=== PATIENT | male | born 1975 | race Caucasian/White ===

== ENCOUNTER → 2018-02-02 14:16 | Outpatient (CLI) | payer BC, SELFPAY ==
--- NOTE | 2018-02-02 14:22 | VDLE_ITS ---
Reason For Study: PAIN RIGHT LEFT CFV is compressible, spontaneous, phasic, CFV is compressible, spontaneous, phasic, competent and demonstrates normal competent, and demonstrates normal augmentation. augmentation. FV is compressible, spontaneous, phasic, FV is compressible, spontaneous, phasic, competent and demonstrates normal competent and demonstrates normal augmentation. augmentation. POP V is compressible, spontaneous, phasic, POP V is compressible, spontaneous, phasic, competent and demonstrates normal competent and demonstrates normal augmentation. augmentation. T/P Trunk is compressible. T/P Trunk is compressible. PTV is compressible. PTV is compressible. RT PerV is compressible. LT PerV is compressible. RT GSV is compressible. Left GSV is compressible. RT SSV is compressible. Left SSV is comrpessible. RT GSV at SFJ is INCOMPETENT for greater Left GSV at SFJ is INCOMPETENT for greater than .5 seconds. than .5 seconds. RT GSV above the knee is INCOMPETENTfor Left GSV above the knee is INCOMPETENT for greater than .5 seconds and measures .9 x greater than .5 seconds and measures .8 x 1.2 cm. 1.0 cm. RT GSV below the knee is INCOMPETENT for Left GSV below the knee is INCOMPETENT for greatear than greater than .5 seconds and measures .4 x .4 .5 seconds and measures .7 x .8 cm. cm. RT SSV is INCOMPETENT for greater than .5 Left SSV is INCOMPETENT for greater than .5 seconds and measures .4 x .4 cm. seconds and measures .3 x .3 cm. Procedure Exam performed in department. Interpretation Summary Deep veins of the lower extremities are bilaterally patent and compressible segmentally. There is no evidence of deep vein thrombosis on either side. Valvular competence appears intact within the proximal deep venous systems bilaterally. The greater saphenous veins appear bilaterally patent and compressible segmentally. Sapheno-femoral junctions are bilaterally incompetent . Segmental valvular incompetence is noted within the greater saphenous veins bilaterally. Small saphenous veins are patent and incompetent bilaterally. Ordering Physician: Wojciech Tapia Referring Physician: Wojciech Tapia Performed By: Tonya Montemayor, CYNDI, RVT
== END ==
PROVIDERS: Visit Provider Surgery
DX: I87.2 Venous insufficiency (chronic) (peripheral) (principal); I83.10 Varicose veins of unspecified lower extremity with inflammation
CPT/HCPCS: 93970

== ENCOUNTER → 2019-03-17 14:09 | Outpatient (CLI) | payer BC, SELFPAY ==
--- NOTE | 2019-03-17 14:13 | VDLE_ITS ---
Reason For Study: Rt leg superficial thrombophlebitis RIGHT LEFT CFV is compressible, spontaneous, phasic, CFV is compressible, spontaneous, phasic, competent and demonstrates normal competent, and demonstrates normal augmentation. augmentation. FV is compressible, spontaneous, phasic, FV is compressible, spontaneous, phasic, competent and demonstrates normal competent and demonstrates normal augmentation. augmentation. POP V is compressible, spontaneous, phasic, POP V is compressible, spontaneous, phasic, competent and demonstrates normal competent and demonstrates normal augmentation. augmentation. T/P Trunk is compressible. T/P Trunk is compressible. PTV is compressible. PTV is compressible. RT PerV is compressible. LT PerV is compressible. Superficial vein thrombosis is noted in the SFJ is INCOMPETENT and measures 1.05 x 0.95 Rt GSV from ankle to prox calf. cm. Thrombus filled varicose veins noted in GSV proximal thigh measures 0.78 x 0.85 cm. proximal anterior calf. GSV at knee measures 0.21 x 0.22 cm. SFJ is INCOMPETENT and measures 1.53 x 1.25 GSV INCOMPETENT throughout for greater than cm. 0.5 seconds. GSV proximal thigh measures 0.91 x 0.97 cm. ASV proximal thigh is INCOMPETENT for greater GSV at knee measures 0.34 x 0.32 cm. than 0.5 seconds and measures 0.55 x 0.61 cm. GSV above knee is INCOMPETENT for greater SSV proximal calf is competent and measures than 0.5 seconds. 0.15 x 0.15 cm. SSV proximal calf is INCOMPETENT for greater than 0.5 seconds and measures 0.35 x 0.34 cm. Procedure Exam performed in department. A preliminary report was called and/or faxed to [facility]. Interpretation Summary Deep veins of the lower extremities are bilaterally patent and compressible segmentally. There is no evidence of deep vein thrombosis on either side. Valvular competence appears intact within the proximal deep venous systems bilaterally. Sapheno-femoral junctions are bilaterally incompetent . Acute superficial thrombophlebitis is noted in the right great saphenous vein from the ankle to the proximal calf, and in superficial varicosities in the right proximal, anterior calf. The right great saphenous vein is patent and incompetent above the knee. The left great saphenous vein is patent and incompetent. The right small saphenous vein is patent and incompetent. The left small saphenous vein is patent and competent. An accessory saphenous vein in the left proximal thigh is incompetent. Ordering Physician: Wojciech Tapia Performed By: Danyelle Schumacher RVT
== END ==
LOC: CVS 14:11
PROVIDERS: Referring Provider Surgery; Visit Provider Surgery
DX: I80.01 Phlebitis and thrombophlebitis of superficial vessels of right lower extremity (principal)
CPT/HCPCS: 93970

== ENCOUNTER → 2019-05-22 14:07 | Outpatient (CLI) | payer BC, SELFPAY ==
--- NOTE | 2019-05-22 14:09 | VDLE_ITS ---
Reason For Study: Superficial thrombophlebitis RIGHT LEFT CFV is compressible, spontaneous, phasic, CFV is compressible, spontaneous, phasic, competent and demonstrates normal competent, and demonstrates normal augmentation. augmentation. FV is compressible, spontaneous, phasic, competent and demonstrates normal augmentation. POP V is compressible, spontaneous, phasic, competent and demonstrates normal augmentation. T/P Trunk is compressible. PTV is compressible. RT PerV is compressible. Acute superficial vein thrombosis is noted in the right GSV mid calf. Prox and distal calf are now compressible. Proximal anterior calf varicose veins are partialy compressible. Thrombus filled varicose veins are noted at medial knee. Procedure Exam performed in department. Compared to study done on 03/17/19. A preliminary report was called and/or faxed to [facility]. Interpretation Summary Deep veins of the right lower extremity are patent and compressible segmentally. There is no evidence of right lower extremity deep vein thrombosis. Valvular competence appears intact within the proximal deep venous system on the right . Acute superficial thrombophlebitis is noted in the right great saphenous vein in the mid-calf, with improvement since a prior study on 03/17/2019. Acute superficial thrombophlebitis involving varicose veins in the right proximal, anterior calf persists, but with improvement since a prior study on 03/17/2019. Acute superficial thrombophlebitis involving varicose veins medial to the right knee appears to have developed since a prior study on 03/17/2019. Ordering Physician: Wojciech Tapia Performed By: Danyelle Schumacher RVT
== END ==
LOC: CVS 14:08
PROVIDERS: Referring Provider Surgery; Visit Provider Surgery
DX: I80.8 Phlebitis and thrombophlebitis of other sites (principal); M79.89 Other specified soft tissue disorders; I87.2 Venous insufficiency (chronic) (peripheral); M79.604 Pain in right leg
CPT/HCPCS: 93971

== ENCOUNTER → 2019-09-19 11:01 | Outpatient (CLI) | payer BC, SELFPAY ==
--- NOTE | 2019-09-19 11:06 | VDLE_ITS ---
Reason For Study: superficial thrombophlebitis RIGHT LEFT CFV is compressible, spontaneous, phasic, CFV is compressible, spontaneous, phasic, competent and demonstrates normal competent, and demonstrates normal augmentation. augmentation. FV is compressible, spontaneous, phasic, competent and demonstrates normal augmentation. POP V is compressible, spontaneous, phasic, competent and demonstrates normal augmentation. T/P Trunk is compressible. PTV is compressible. RT PerV is compressible. A short segment of the GSV at the knee is now partially compressible. The remainder of the GSV is compressible. Improvement from Previous study 05/22/2019. Thrombus filled varicose veins are noted at medial knee. Procedure Exam performed in department. The exam was diagnostic. Interpretation Summary Deep veins of the right lower extremity are patent and compressible segmentally. There is no evidence of right lower extremity deep vein thrombosis. Valvular competence appears intact within the proximal deep venous system on the right . The right great saphenous vein is patent and compressible, but for a short segment at knee level which is only partially compressible. In this regard, there has been improvement since a prior study on 05/22/2019. Acute superficial thrombophlebitis is noted involving superficial varicosities medial to the right knee. Ordering Physician: Wojciech Tapia Performed By: Wei Rey RVT
== END ==
LOC: CVS 11:03
PROVIDERS: Referring Provider Surgery; Visit Provider Surgery
DX: M79.604 Pain in right leg (principal); M79.89 Other specified soft tissue disorders; I80.9 Phlebitis and thrombophlebitis of unspecified site; I87.2 Venous insufficiency (chronic) (peripheral)
CPT/HCPCS: 93971